=== PATIENT | female | born 1985 | race Caucasian/White ===

== ENCOUNTER 2017-07-25 06:11 | Emergency (ER) | payer MEDICAID, OTHER ==
[~2017-07-25] VITALS: Ht 162.6 cm; Wt 65.5 kg
[~2017-07-25 06:11] MED LIST: MOTRIN PM
[2017-07-25 06:20] VITALS: Ht 162.6 cm; Wt 65.5 kg
[2017-07-25] MEDS ORDERED: ONDANSETRON 4 MG INJ IV STA (06:38)
[2017-07-25] MEDS ORDERED: morphine 4 MG/ML VIAL IV STA (06:38)
--- NOTE | 2017-07-25 06:57 | ERD ---
ER Documentation Chief Complaint Chief Complaint upper abd pain x 1 day HPI This is a 32-year-old female who presents to the emergency department today complaining of abdominal pain that started yesterday. States she has been told she has gallstones in the past. States she has taken Motrin. States she never followed up with a surgeon because she does not currently have insurance. States she also has some diarrhea and some back pain denies any fevers or chills. ROS All systems reviewed and are negative except as per history of present illness. Medications Home Meds Active Scripts Ondansetron Hcl* (Zofran*) 4 Mg Tablet, 4 MG PO Q6H for NAUSEA AND/OR VOMITING, #30 TAB Prov:MARISA MONTES PA-C 07/25/17 Naproxen* (Naprosyn*) 500 Mg Tablet, 500 MG PO BID Y for PAIN AND/OR INFLAMMATION, #30 TAB Prov:MARISA MONTES PA-C 07/25/17 Hydrocodone/Acetaminophen (Manilla 5-325 Tablet) 1 Each Tablet, 1 TAB PO Q6H Y for PAIN, #10 TAB Prov:MARISA MONTES PA-C 07/25/17 Reported Medications [Motrin Pm] No Conflict Check 10/02/11 Allergies Allergies: Coded Allergies: No Known Drug Allergy (Unverified Allergy, Unknown, 12/03/11) PMhx/Soc History of Surgery: Yes (TUBAL LIGATION, CSECTION, ECTOPIC ) Anesthesia Reaction: No Hx Neurological Disorder: No Hx Respiratory Disorders: No Hx Cardiac Disorders: No Hx Psychiatric Problems: No Hx Miscellaneous Medical Probl: No (gallstones) Hx Alcohol Use: No Hx Substance Use: No Hx Tobacco Use: No Physical Exam Vitals Vital Signs Date Time Temp Pulse Resp B/P Pulse Ox O2 Delivery O2 Flow Rate FiO2 07/25/17 06:20 97.8 73 20 120/71 100 Physical Exam Const: NAD Head: Atraumatic Eyes: Normal Conjunctiva ENT: Normal External Ears, Nose and Mouth. Neck: Full range of motion..~ No meningismus. Resp: Clear to auscultation bilaterally Cardio: Regular rate and rhythm, no murmurs Abd: Soft,RUQ tenderness, non distended. Normal bowel sounds. No tenderness at McBurney's Skin: No petechiae or rashes Back: No midline or flank tenderness. No CVA tenderness. Ext: No cyanosis, or edema Neur: Awake and alert Psych: Normal Mood and Affect Result Diagram: 07/25/17 0700 07/25/17 0700 Results 24 hrs Laboratory Tests Test 07/25/17 07:00 White Blood Count 7.610^3/ul Red Blood Count 4.2510^6/ul Hemoglobin 11.7g/dl Hematocrit 36.3% Mean Corpuscular Volume 85.4fl Mean Corpuscular Hemoglobin 27.5pg Mean Corpuscular Hemoglobin Concent 32.2g/dl Red Cell Distribution Width 13.8% Platelet Count 82412^3/UL Mean Platelet Volume 9.9fl Neutrophils % 54.6% Lymphocytes % 32.3% Monocytes % 7.9% Eosinophils % 4.0% Basophils % 0.9% Nucleated Red Blood Cells % 0.0/100WBC Neutrophils # 4.210^3/ul Lymphocytes # 2.510^3/ul Monocytes # 0.610^3/ul Eosinophils # 0.310^3/ul Basophils # 0.110^3/ul Nucleated Red Blood Cells # 0.010^3/ul Urine Color YELLOW Urine Clarity CLEAR Urine pH 7.0 Urine Specific Clyo 1.017 Urine Ketones NEGATIVEmg/dL Urine Nitrite NEGATIVEmg/dL Urine Bilirubin NEGATIVEmg/dL Urine Urobilinogen 1+mg/dL Urine Leukocyte Esterase TRACELeu/ul Urine Microscopic RBC 1/HPF Urine Microscopic WBC 2/HPF Urine Hemoglobin NEGATIVEmg/dL Urine Glucose NEGATIVEmg/dL Urine Total Protein NEGATIVEmg/dl Sodium Level 140mmol/L Potassium Level 4.1mmol/L Chloride Level 106mmol/L Carbon Dioxide Level 23mmol/L Anion Gap 15 Blood Urea Nitrogen 17mg/dl Creatinine 0.66mg/dl Glucose Level 97mg/dl Calcium Level 8.4mg/dl Total Bilirubin 0.3mg/dl Direct Bilirubin 0.00mg/dl Indirect Bilirubin 0.3mg/dl Aspartate Amino Transf (AST/SGOT) 17IU/L Alanine Aminotransferase (ALT/SGPT) 30IU/L Alkaline Phosphatase 53IU/L Total Protein 7.0g/dl Albumin 4.2g/dl Globulin 2.80g/dl Albumin/Globulin Ratio 1.50 Lipase 84U/L Current Medications Medications (Trade) Dose Ordered Sig/Nilsa Route PRN Reason Start Time Stop Time Status Last Admin Dose Admin Morphine Sulfate (morphine) 4 mg ONCE STAT IV 07/25/17 06:38 07/25/17 06:40 DC 07/25/17 07:07 Ondansetron HCl (Zofran Inj) 4 mg ONCE STAT IV 07/25/17 06:38 07/25/17 06:40 DC 07/25/17 07:07 DIAGNOSTIC IMAGING REPORT Patient: DAVID JOSHI : 1985 Age: 32 Sex: F MR #: [id number] DOS: 07/25/17 0638 Ordering MD: MARISA MONTES PA-C Location: [facility] Room/Bed: PROCEDURE: Abdominal ultrasound, limited. CLINICAL INDICATION: Abdominal pain. TECHNIQUE: Multiple real-time images were acquired of the patient's right upper abdomen utilizing a high resolution transducer. COMPARISON: None FINDINGS: The liver demonstrates normal echogenicity and size measuring 14.8 cm. There is no focal mass or intrahepatic biliary ductal dilatation. The portal vein is patent. The gallbladder is not distended. Multiple echogenic gallstones are identified. There is no pericholecystic fluid. There is mild to moderate gallbladder wall thickening measuring 7.7 mm. There is a negative sonographic Anderson's sign. The common bile duct measures 4.3 mm in maximal dimension. The visualized portions of the pancreas are unremarkable. No free fluid is identified. The right kidney is normal size and echogenicity measuring 9.8 x 5.2 x 5.5 cm. There is no focal renal mass or echogenic calculus identified. There is no obstructive uropathy. IMPRESSION: Cholelithiasis with mild to moderate gallbladder wall thickening. .Asim Soares MD, MD Date Time Electronically viewed and signed by .Asim Soares MD, MD on 07/25/2017 07:56 .T/ CC: MARISA MONTES PA-C Procedures/MDM This is a 32-year-old female who presents the emergency department today complaining of upper abdominal pain that started yesterday. Patient has a known history of gallstones. This is the patient's first visit to the emergency department since 2011. Patient is afebrile and otherwise well- appearing however on physical exam patient has right upper quadrant tenderness. Given this I did obtain laboratory workup as well as imaging laboratory workup white blood cell count. Her hemoglobin is very mildly decreased. Electrolytes are within normal limits. Glucose is within normal limits. Liver enzymes are within normal limits. Lipase is within normal limits. UA shows trace leukocyte esterase. test is negative RUQ US shows cholelithiasis with mild to moderate gallbladder wall thickening. There is no pericholecystic fluid. Common bile duct measures 4.3 mm in maximal dimension. There is no free fluid. Symptoms at this time is consistent with stones and gallbladder wall thickening. I discussed the patient with he feels that given that the patient's pain is well controlled and her laboratory work is normal and that she may follow-up as an outpatient with general surgery. She was given morphine and Zofran here in the emergency department pain completely resolved. Patient was given a prescription for short course of Man[place] , Naprosyn and Zofran for home. I explained the results to the patient. She was given a list of referrals. At this time the patient is stable for discharge and outpatient management. Patient should follow up with their PCP in the next 1-2 days. They may return to the emergency department sooner for any persistent or worsening of symptoms. Patient understood and agreed with the plan. Departure Diagnosis: Primary Impression: Gallstones Condition: MARISA Goldberg PA-C Jul 25, 2017 06:57
[2017-07-25 07:20] LABS: BASOPHIL # 0.1 10^3/ul (0.0-0.1); BASOPHILS % 0.9 % (0.0-2.0); EOSINOPHILS # 0.3 10^3/ul (0.0-0.5); HEMATOCRIT 36.3 % (37.0-47.0); HEMOGLOBIN 11.7 g/dl (12.0-16.0); LYMPHOCYTES # 2.5 10^3/ul (0.8-2.9); LYMPHOCYTES % 32.3 % (15.0-51.0); MEAN CORPUSCULAR HEMOGLOBIN 27.5 pg (29.0-33.0); MEAN CORPUSCULAR HGB CONC 32.2 g/dl (32.0-37.0); MEAN CORPUSCULAR VOLUME 85.4 fl (82.0-101.0); MEAN PLATELET VOLUME 9.9 fl (7.4-10.4); MONOCYTE # 0.6 10^3/ul (0.3-0.9); MONOCYTES % 7.9 % (0.0-11.0); NEUTROPHIL # 4.2 10^3/ul (1.6-7.5); NEUTROPHILS % 54.6 % (39.0-77.0); PLATELET COUNT 240 10^3/UL (140-415); RED BLOOD COUNT 4.25 10^6/ul (4.20-5.40); RED CELL DISTRIBUTION WIDTH 13.8 % (11.5-14.5); WHITE BLOOD COUNT 7.6 10^3/ul (4.8-10.8)
[2017-07-25 07:37] LABS: ADD UMIC YES; UR ASCORBIC ACID NEGATIVE (NEGATIVE); UR BILIRUBIN (Dip) NEGATIVE (NEGATIVE); UR BLOOD (Dip) NEGATIVE (NEGATIVE); UR CLARITY CLEAR (CLEAR); UR COLOR YELLOW (YELLOW); UR GLUCOSE (Dip) NEGATIVE (NEGATIVE); UR KETONES (Dip) NEGATIVE (NEGATIVE); UR LEUKOCYTE ESTERASE (Dip) TRACE Leu/ul (NEGATIVE); UR NITRITE (Dip) NEGATIVE (NEGATIVE); UR RBC 1 /HPF (0-5); UR SPECIFIC GRAVITY (Dip) 1.017 (1.003-1.030); UR TOTAL PROTEIN (Dip) NEGATIVE (NEGATIVE); UR UROBILINOGEN (Dip) 1+ mg/dL (NEGATIVE)
[2017-07-25 07:41] LABS: ALBUMIN 4.2 g/dl (3.3-4.9); ALBUMIN/GLOBULIN RATIO 1.5; BILIRUBIN,INDIRECT 0.3 mg/dl (0-1.1); BILIRUBIN,TOTAL 0.3 mg/dl (0.2-1.3); CALCIUM 8.4 mg/dl (8.4-10.2); CREATININE 0.66 mg/dl (0.44-1.00); POTASSIUM 4.1 mmol/L (3.5-5.1)
--- NOTE | 2017-07-25 07:56 | RADRPT ---
PROCEDURE: Abdominal ultrasound, limited. CLINICAL INDICATION: Abdominal pain. TECHNIQUE: Multiple real-time images were acquired of the patient's right upper abdomen utilizing a high resolution transducer. COMPARISON: None FINDINGS: The liver demonstrates normal echogenicity and size measuring 14.8 cm. There is no focal mass or in trahepatic biliary ductal dilatation. The portal vein is patent. The gallbladder is not distended. Multiple echogenic gallstones are identified. There is no pericholecystic fluid. There is mild to moderate gallbladder wall thickening measuring 7.7 mm. There is a negative sonographic Anderson's si gn. The common bile duct measures 4.3 mm in maximal dimension. The visualized portions of the pancr eas are unremarkable. No free fluid is identified. The right kidney is normal size and echogenicity measuring 9.8 x 5.2 x 5.5 cm. There is no focal re nal mass or echogenic calculus identified. There is no obstructive uropathy. IMPRESSION: Cholelithiasis with mild to moderate gallbladder wall thickening. .Asim Soares MD, MD Date Time Electronically viewed and signed by .Asim Soares MD, MD on 07/25/2017 07:56 .T/
[2017-07-25] MEDS ORDERED: HYDR-906 PO (08:12)
[2017-07-25] MEDS ORDERED: ONDA4TAB8 PO (08:13)
[2017-07-25] MEDS ORDERED: NAPR-260 PO (08:13)
== END 2017-07-25 08:40 | disposition home or self-care (01) ==
LOC: FTE 06:11
DX: K80.20 Calculus of gallbladder without cholecystitis without obstruction (principal)
CPT/HCPCS: 36415; 76705; 80053; 81001; 83690; 85025; 96374; 96375; J2270; J2405; Z7502

== ENCOUNTER 2017-08-25 22:10 | Emergency (ER) | payer MEDICAID ==
[~2017-08-25] VITALS: Ht 162.6 cm; Wt 68.6 kg
[~2017-08-25 22:10] MED LIST changes: +HYDR-906 PO; +NAPR-260 PO; +ONDA4TAB8 PO
[2017-08-25 22:15] VITALS: Ht 162.6 cm; Wt 68.6 kg
--- NOTE | 2017-08-26 00:20 | ERD ---
ER Documentation Chief Complaint Chief Complaint pt crying- denies having pain, pt claims she has anxiety; med refill needed HPI 32-year-old female presents to emergency department for complaints of anxiety attack tonight. Patient has not been able to fill her prescription for her anxiety. Patient denies any homicidal or suicidal ideations. Patient does not have any chest pain or palpitations. Patient does not have any dizziness. ROS All systems reviewed and are negative except as per history of present illness. Medications Home Meds Active Scripts Ondansetron Hcl* (Zofran*) 4 Mg Tablet, 4 MG PO Q6H for NAUSEA AND/OR VOMITING, #30 TAB Prov:MARISA MONTES PA-C 07/25/17 Naproxen* (Naprosyn*) 500 Mg Tablet, 500 MG PO BID Y for PAIN AND/OR INFLAMMATION, #30 TAB Prov:MARISA MONTES PA-C 07/25/17 Hydrocodone/Acetaminophen (Renick 5-325 Tablet) 1 Each Tablet, 1 TAB PO Q6H Y for PAIN, #10 TAB Prov:MARISA MONTES PA-C 07/25/17 Reported Medications [Motrin Pm] No Conflict Check 10/02/11 Allergies Allergies: Coded Allergies: No Known Drug Allergy (Unverified Allergy, Unknown, 12/03/11) PMhx/Soc History of Surgery: Yes (Tubal Ligation,) Anesthesia Reaction: No Hx Neurological Disorder: No Hx Respiratory Disorders: No Hx Cardiac Disorders: No Hx Psychiatric Problems: Yes (Depression,Anxiety) Hx Miscellaneous Medical Probl: Yes (Gallstones,Ectopic ) Hx Alcohol Use: No Hx Substance Use: No Hx Tobacco Use: No Smoking Status: Never smoker FmHx Family History: No coronary disease, No diabetes, No other Physical Exam Vitals Vital Signs Date Time Temp Pulse Resp B/P Pulse Ox O2 Delivery O2 Flow Rate FiO2 08/25/17 22:15 98.3 90 20 141/86 100 Physical Exam GENERAL: The patient is well developed and appropriate for usual state of health, in no apparent distress. CHEST: Clear to auscultation bilaterally. There are no rales, wheezes or rhonchi. HEART: Regular rate and rhythm. No murmurs, clicks, rubs or gallops. No S3 or S4. ABDOMEN: Soft, nontender and nondistended. Good bowel sounds. No rebound or guarding. No gross peritonitis. No gross organomegaly or masses. No Anderson sign or McBurney point tenderness. BACK: No midline or flank tenderness. EXTREMITIES: Equal pulses bilaterally. There is no peripheral clubbing, cyanosis or edema. No focal swelling or erythema. Full range of motion. Grossly neurovascularly intact. NEURO: Alert and oriented. Cranial nerves 2-12 intact. Motor strength in all 4 extremities with 5/5 strength. Sensation grossly intact. Normal speech and gait. SKIN: There is no apparent rash or petechia. The skin is warm and dry. HEMATOLOGIC AND LYMPHATIC: There is no evidence of excessive bruising or lymphedema. No gross cervical, axillary, or inguinal lymphadenopathy. Psychiatric: Patient is crying, anxious, cooperative. Not verbalizing homicidal or suicidal ideations. Results 24 hrs Current Medications Medications (Trade) Dose Ordered Sig/Nilsa Route PRN Reason Start Time Stop Time Status Last Admin Dose Admin Lorazepam (Ativan) 1 mg ONCE ONCE IM 08/26/17 00:30 08/26/17 00:31 08/26/17 00:15 Ativan was given here in the emergency department for treatment of anxiety, tolerated medication well. Procedures/MDM Medical decision making: Patient symptoms was likely is consistent with anxiety attack, no symptoms of any psychiatric emergencies, no homicidal or suicidal ideations. Patient is cooperative at this time. Patient was wanting some resources for psychiatric evaluation, was given resources. Patient was advised to fill prescription as prescribed to her by her accounting specialist. Patient was advised to return to emergency department for homicidal, suicidal ideations, or any other worsening symptoms. Disposition: Home. Stable. Departure Diagnosis: Primary Impression: Anxiety attack Condition: Stable Patient Instructions: Panic Attack Additional Instructions: fill prescriptions, see integrity specialist, was given resources for Psych [address] [place] [id number] [address] JAJA NEUMANN NP Aug 26, 2017 00:20
[2017-08-26] MEDS ORDERED: LORAZEPAM 2 MG INJ IM ONE (00:30)
== END 2017-08-26 00:36 | disposition home or self-care (01) ==
LOC: FTE 22:10
DX: F41.9 Anxiety disorder, unspecified (principal)
CPT/HCPCS: 96372; J2060; Z7502